=== PATIENT | female | born 1990 | race Caucasian/White ===

== ENCOUNTER 2020-06-14 17:23 | Emergency (ER) | payer BC ==
[2020-06-14 18:25] LABS: HEMOGLOBIN 11.9 gm/dl (12.3-15.3); RED BLOOD COUNT 3.84 M/UL (4.00-5.10); WHITE BLOOD COUNT 11.5 K/UL (4.5-11.0)
[2020-06-14 18:42] LABS: BUN/CREATININE RATIO 15 (0-10)
[2020-06-14] MEDS ORDERED: MACROBID 100 M100 MG PO (23:05)
== END 2020-06-14 23:26 | disposition home or self-care (01) ==
LOC: ER1 17:23
PROVIDERS: Emergency Medicine
DX: O99.891 Other specified diseases and conditions complicating pregnancy (principal); R07.89 Other chest pain; Z20.822 Contact with and (suspected) exposure to COVID-19; R79.1 Abnormal coagulation profile; O23.43 Unspecified infection of urinary tract in pregnancy, third trimester; Z3A.38 38 weeks gestation of pregnancy; Z88.6 Allergy status to analgesic agent; Z87.891 Personal history of nicotine dependence
CPT/HCPCS: 0240U; 71045; 80053; 80307; 81001; 82550; 82553; 83874; 84484; 85025; 85379; 87086; 93005; 99285; Q9967

== ENCOUNTER 2020-06-18 16:20 | Inpatient (IN) | payer BC ==
[~2020-06-18] VITALS: Ht 152.4 cm; Wt 88.9 kg
[~2020-06-18 16:20] MED LIST: MACROBID 100 M100 MG PO
[2020-06-18 17:12] LABS: HEMOGLOBIN 11.9 gm/dl (12.3-15.3); RED BLOOD COUNT 3.83 M/UL (4.00-5.10); WHITE BLOOD COUNT 12.8 K/UL (4.5-11.0)
[2020-06-18] MEDS ORDERED: MACROBID 100 M100 MG PO (17:59)
[2020-06-18] MEDS ORDERED: PRENATAL VITAM1 EAC3 PO (17:59)
[2020-06-20] MEDS ORDERED: HYDROCODONE-AC1 EAC1 PO (22:04)
[2020-06-20] MEDS ORDERED: NAPROXEN250 MG PO (22:04)
[2020-06-20] MEDS ORDERED: DOCUSATE SODIU100 MG PO (22:04)
[2020-06-21 06:23] LABS: HEMOGLOBIN 10.4 gm/dl (12.3-15.3)
== END 2020-06-22 16:09 | disposition home or self-care (01) | DRG 786 ==
LOC: GENOP 16:20 → OB 16:34
PROVIDERS: Obstetrics & Gynecology; ADMIT Obstetrics & Gynecology
PROC: 0U7C7ZZ Dilation of Cervix, Via Natural or Artificial Opening (ICD-10-PCS; 2020-06-20)
PROC: 3E033VJ Introduction of Other Hormone into Peripheral Vein, Percutaneous Approach (ICD-10-PCS; 2020-06-20)
PROC: 10907ZC Drainage of Amniotic Fluid, Therapeutic from Products of Conception, Via Natural or Artificial Opening (ICD-10-PCS; 2020-06-20)
PROC: 10D00Z1 Extraction of Products of Conception, Low, Open Approach (ICD-10-PCS; principal; 2020-06-20 22:18)
DX: O13.4 Gestational [pregnancy-induced] hypertension without significant proteinuria, complicating childbirth (principal); O41.1230 Chorioamnionitis, third trimester, not applicable or unspecified; Z3A.39 39 weeks gestation of pregnancy; Z37.0 Single live birth; O62.1 Secondary uterine inertia; Z28.21 Immunization not carried out because of patient refusal; O99.344 Other mental disorders complicating childbirth; F41.9 Anxiety disorder, unspecified
CPT/HCPCS: 36415; 81001; 82800; 85014; 85018; 85025; C9113; J0290; J0595; J0690; J1170; J1580; J2001; J2270; J2274; J2405; J2590; J2704; J2795; J3010; J7120